=== PATIENT | male | born 1965 | race Caucasian/White ===

== ENCOUNTER 2020-05-28 23:14 | Emergency (ER) | payer OTHER ==
[~2020-05-28] VITALS: Ht 175.3 cm; Wt 72.6 kg
[2020-05-29] MEDS ORDERED: LORazepam 2MG/ML-1ML VIAL IV ONE (07:00)
[2020-05-29] MEDS ORDERED: HALOPERIDOL LACTATE 5 MG/ML INJ VIAL ONE (07:31)
[2020-05-29] MEDS ORDERED: diphenhdrAMINE HCL 50 MG/1 ML VL ONE (07:31)
[2020-05-29 07:38] LABS: Urine Bacteria NONE SEEN /hpf (None Seen); Urine Blood Negative /uL (Negative); Urine Specific Gravity 1.019 (1.001-1.035); Urine WBC <1 /hpf (0 - 3)
[2020-05-29 07:40] LABS: Basophils # (auto) 0.1 10 ^3/uL (0-0.2); Hemoglobin 8.7 g/dL (13.5-17.5); Monocytes # (auto) 0.5 10 ^3/uL (0-1.3); Neutrophils # (auto) 3.4 10 ^3/uL (1.6-8.6)
[2020-05-29 07:42] LABS: Basophils % (auto) 1.1 % (0.0-2.0); Eosinophils # (auto) 0.1 10 ^3/uL (0-0.8); Eosinophils % (auto) 2.1 % (0.0-7.0); Lymphocytes # (auto) 2.6 10 ^3/uL (0.4-5.4); Lymphocytes % (auto) 38.8 % (10.0-50.0); Mean Corpuscular Hemoglobin 22.5 pg (28.0-32.0); Mean Corpuscular Hgb Conc. 31.2 g/dL (32.0-36.0); Mean Corpuscular Volume 72.1 fL (80.0-100.0); Monocytes % (auto) 7.8 % (0.0-12.0); Neutrophils % (auto) 50.2 % (37.0-80.0); Nucleated Red Blood Cells % 0.2 %; Platelet Count (auto) 525 10^3/uL (140-450); Red Blood Cells 3.88 10^6/uL (4.5-5.90); Red Cell Distribution Width 19.4 % (11.8-14.3); White Blood Cell 6.8 10^3/uL (4.4-10.8)
[2020-05-29] MEDS ORDERED: HALOPERIDOL LACTATE 5 MG/ML INJ VIAL IM ONE (07:45)
[2020-05-29] MEDS ORDERED: diphenhdrAMINE HCL 50 MG/1 ML VL IV ONE (07:45)
[2020-05-29 07:54] LABS: Alanine Aminotransferase 37 U/L (16-61); Albumin 3.9 g/dL (3.4-5.0); Anion Gap 9 (5-15); Aspartate Aminotransferase 43 U/L (15-37); Calcium 9.1 mg/dL (8.5-10.1); Carbon Dioxide 22 mmol/L (21-32); Chloride 108 mmol/L (98-107); GFR African American 50 mL/min; GFR Non-African American 41 mL/min; Potassium 3.8 mmol/L (3.5-5.1); Sodium 139 mmol/L (136-145)
[2020-05-29 07:56] LABS: Amphetamine Screen, Urine POSITIVE (NEGATIVE); Barbiturate Scree,Urine NEGATIVE (NEGATIVE); Benzodiazephine Screen, Urine NEGATIVE (NEGATIVE); Cannabinoid Screen, Urine NEGATIVE (NEGATIVE); Cocaine Screen, Urine NEGATIVE (NEGATIVE); Opiate Scree,Urine NEGATIVE (NEGATIVE); Phencyclidine Screen, Urine NEGATIVE (NEGATIVE)
[2020-05-29 07:57] LABS: Alkaline Phosphatase 112 U/L (45-117); Bilirubin, Total 0.3 mg/dL (0.2-1.0); Total Protein 7.8 g/dL (6.4-8.2)
[2020-05-29] MEDS ORDERED: NOREPINEPHRINE 8 MG/250ML KIT 250 ML IV SCH (08:00)
[2020-05-29] MEDS ORDERED: PROPOFOL 100 ML IV SCH (08:00)
[2020-05-29 08:02] LABS: Glucose 96 mg/dL (74-106)
[2020-05-29 08:05] LABS: Blood Urea Nitrogen 43 mg/dL (7-18)
[2020-05-29 08:05] LABS: Alcohol, Urine < 3.0 mg/dL (0-10)
[2020-05-29 08:09] LABS: BUN/Creatinine Ratio 23.6
[2020-05-29 08:21] LABS: Blood Alcohol < 3.0 mg/dL (0-5)
[2020-05-29] MEDS ORDERED: AMMONIA 0.33 ML INHALANT IN ONE (11:33)
[2020-05-30 07:29] VITALS: BP 151/92
== END 2020-05-30 08:27 | disposition home or self-care (01) ==
LOC: ER 23:15
DX: R45.851 Suicidal ideations (principal); H57.10 Ocular pain, unspecified eye; F17.210 Nicotine dependence, cigarettes, uncomplicated; Z20.822 Contact with and (suspected) exposure to COVID-19
CPT/HCPCS: 36415; 80053; 80307; 80320; 80329; 81001; 84484; 85025; 87426; 96372; 96374; 96375; 99285; C9803; U0003